=== PATIENT | male | born 1955 | race Two or more races ===

== ENCOUNTER → 2020-08-02 | Outpatient (CLI) | payer MEDICARE ==
[2015-04-20 10:07] VITALS: BP 149/80
[~2020-08-02] MED LIST: BUDE10.22 IH; BUME1TAB3 PO; POTA10TA12 PO; PREG100C PO
--- NOTE | 2020-08-03 08:16 | RAD ---
US THYROID: 08/02/2020 10:59 AM Indication: 64 years old Male. Thyroiditis. Comparison: None. TECHNIQUE: Sonographic evaluation of the thyroid gland was performed utilizing grayscale and color Do ppler imaging. FINDINGS: Examination limited by motion and body habitus. Right lobe: Normal in morphology and echotexture without significant hyperemia. Size: 3.2 x 1.6 x 1.6 cm Nodules: No suspicious thyroid nodules are identified. Left lobe: Normal in morphology and echotexture without significant hyperemia. Size: 3.6 x 1.7 x 1.6 cm Nodules: No suspicious thyroid nodules are identified. Isthmus: Measure 0.9 cm without suspicious thyroid nodule. IMPRESSION: 1. No suspicious thyroid nodules are identified. No significant hyperemia is present. Electronically signed by: Ni Dietrich MD (08/03/2020 8:14 AM) [id number]
== END ==
LOC: US 10:49
PROVIDERS: ATTEND Family Medicine
DX: E06.9 Thyroiditis, unspecified (principal)
CPT/HCPCS: 76536

== ENCOUNTER 2021-06-02 12:43 | Emergency (ER) | payer MEDICARE ==
[~2021-06-02] VITALS: Ht 175.3 cm; Wt 139.7 kg
[2021-06-02 12:43] VITALS: BP 147/103
[~2021-06-02 12:43] MED LIST changes: -CLIN-95 PO
--- NOTE | 2021-06-02 13:17 | PHYS DOC ---
Past History Past Medical History: CHF, COPD, Vascular Disease (HALEY ONEAL PAYROLL MASTER) Past Surgical History: No Surgical History (HALEY ONEAL PAYROLL MASTER) Alcohol Use: None Drug Use: None (HALEY ONEAL APRN) Adult General Chief Complaint Chief Complaint: MULTIPLE COMPLAINTS [facility] HPI Patient is a 65-year-old male patient with history of CHF, COPD who presents today complaining of dental infection and left lower lip numbness. Patient states he developed left lower gum dental infection 4 days ago, he states due to the pain he started using Orajel. He states he applied "quiet abit" of the oral Orajel on the left lower gum which has made his left lower lip numb as well as part of the gum. Numbness has been present for 4 days. Patient states he went to urgent care for antibiotics and was sent to the Ed with concerns he could have a stroke. (HALEY ONEAL PAYROLL MASTER) Review of Systems Review of Systems Constitutional: Denies fever or chills [] Eyes: Denies change in visual acuity, redness, or eye pain [] HENT: Reports dental infection in the left lower lip numbness, denies nasal congestion or sore throat [] Respiratory: Denies cough or shortness of breath [] Cardiovascular: No additional information not addressed in HPI [] GI: Denies abdominal pain, nausea, vomiting, bloody stools or diarrhea [] : Denies dysuria or hematuria [] Musculoskeletal: Denies back pain or joint pain [] Integument: Denies rash or skin lesions [] Neurologic: Denies headache, focal weakness or sensory changes [] All other systems were reviewed and found to be within normal limits, except as documented in this note. (HALEY ONEAL PAYROLL MASTER) Allergies Allergies Allergies Coded Allergies Type Severity Reaction Last Updated Verified Penicillins Allergy Intermediate rash 04/19/15 No (HALEY ONEAL APRN) Physical Exam Physical Exam Constitutional: Well developed, well nourished, no acute distress, non-toxic appearance. [] HENT: Normocephalic, atraumatic, bilateral external ears normal, oropharynx moist, no oral exudates, nose normal. [] Dental exam-missing molars on the left lower abdomen, right lower gum as well. The few teeth left decayed and appear infected. No gum erythema. Left lower gum and lip are numb. Eyes: PERRLA, EOMI, conjunctiva normal, no discharge. [] Neck: Normal range of motion, no tenderness, supple, no stridor. [] Cardiovascular:Heart rate regular rhythm, no murmur [] Lungs & Thorax: Bilateral breath sounds clear to auscultation [] Abdomen: Bowel sounds normal, soft, no tenderness, no masses, no pulsatile masses. [] Skin: Warm, dry, no erythema, no rash. [] Back: No tenderness, no CVA tenderness. [] Extremities: No tenderness, no cyanosis, no clubbing, ROM intact, no edema. [] Neurologic: Alert and oriented X 3, normal motor function, normal sensory function, no focal deficits noted. Cranial nerves II through XII intact Psychologic: Affect normal, judgement normal, mood normal. [] (JTUNGAHALEY M PAYROLL MASTER) EKG EKG [] (RACHIDAHALEY PAYROLL MASTER) Radiology/Procedures Radiology/Procedures []PROCEDURE: CT HEAD WO CONTRAST CT HEAD INDICATION: Reason: Lower lip numbness after using oralgel / Spl. Instructions: / History: COMPARISON: None Available. Exposure: One or more of the following individualized dose reduction techniques were utilized for this examination: 1. Automated exposure control 2. Adjustment of the mA and/or kV according to patient size 3. Use of iterative reconstruction technique TECHNIQUE: 5 mm contiguous axial images were obtained from the skull base to the vertex in both bone and soft tissue algorithm. FINDINGS: No abnormal attenuation within the brain parenchyma. No evidence of acute intracranial hemorrhage. No extra-axial fluid collections. No mass effect or midline shift. Ventricular size is appropriate. Basal cisterns are patent. No fractures identified.Matamoros-white differentiation is preserved.Globes and orbits are within normal limits. Paranasal sinuses and mastoid air cells are clear. IMPRESSION: No acute intracranial findings. Electronically signed by: Joey Willis MD (06/02/2021 1:28 PM) [id number] DICTATED AND SIGNED BY: JOEY WILLIS MD DATE: 06/02/21 1322 CC: ANGEL MCCONNELL MD; HALEY ONEAL PAYROLL MASTER ~MTH0 0 (JTUNGAHALEY M PAYROLL MASTER) Heart Score C/O Chest Pain: N/A Risk Factors: Risk Factors: DM, Current or recent (<one month) smoker, HTN, HLP, family history of CAD, obesity. Risk Scores: Risk Factors: DM, Current or recent (<one month) smoker, HTN, HLP, family history of CAD, obesity. (HALEY ONEAL APRN) Course & Med Decision Making Course & Med Decision Making Pertinent Labs and Imaging studies reviewed. (See chart for details) This is a 65-year-old male patient presenting to the ED today complaining of dental infection and left lower lip numbness that began 4 days ago after using Orajel. Patient was seen at urgent care was sent to the ED for stroke rule out. His NIHSS scale is 0. CT of the head is negative. Numbness of the lip is from the original. Discharged on clindamycin and instructed to follow-up with a dentist as soon as he can (HALEY ONEAL APRN) Course & Med Decision Making I was the Attending physician on the above date of service of this patient. This patient was evaluated, examined, treated, and dispositioned from the emergency department by the mid-level practitioner. Although I was working at the time , no assistance was requested. Electronically signed, Ismael Watts DO (ISMAEL WATTS DO) Conner Disclaimer Dragon Disclaimer This electronic medical record was generated, in whole or in part, using a voice recognition dictation system. (HALEY ONEAL APRN) NIH Stroke Scale: NIH Stroke Scale Response (Comments) Value Level of Consciousness: 0 Alert/Responsive 0 LOC Questions: 0 Answers both correctly 0 LOC Commands: 0 Performs both tasks 0 Best Gaze: 0 Normal 0 Visual: 0 No visual loss 0 Facial Palsy: 0 Normal, symmetrical 0 Motor - Left Arm 0 No drift 0 Motor - Right Arm 0 No drift 0 Motor - Left Leg 0 No drift 0 Motor: Right Leg 0 No drift 0 Limb Ataxia: 0 Absent 0 Sensory: 0 No loss 0 Best Language: 0 Normal 0 Dysathria: 0 Normal 0 Extinction and Inattention: 0 Normal 0 Total 0 Departure Departure: Impression: Primary Impression: Infected dental caries Disposition: HOME / SELF CARE / HOMELESS Condition: STABLE Referrals: ANGEL MCCONNELL MD (PCP) Follow-up with your dentist and primary care doctor in 1 to 2 weeks Patient Instructions: Dental Caries-Brief, Dental Pain, [id number] Additional Instructions: Your CT of the head is negative for any acute findings. The lip numbness is likely from Orajel. Please take the prescribed antibiotics as ordered until completed. Follow-up with your dentist and primary care doctor next week Scripts Clindamycin Hcl (CLINDAMYCIN HCL) 300 Mg Capsule 1 CAP PO TID, #21 CAP Prov: HALEY ONEAL PAYROLL MASTER 06/02/21 Clindamycin Hcl (CLINDAMYCIN HCL) 300 Mg Capsule 1 CAP PO TID, #21 CAP Prov: HALEY ONEAL APRN 06/02/21 HALEY ONEAL APRN Jun 02, 2021 13:17 ISMAEL WATTS DO Jun 03, 2021 06:54
--- NOTE | 2021-06-02 13:30 | RAD ---
CT HEAD INDICATION: Reason: Lower lip numbness after using oralgel / Spl. Instructions: / History: COMPARISON: None Available. Exposure: One or more of the following individualized dose reduction techniques were utilized for thi s examination: 1. Automated exposure control 2. Adjustment of the mA and/or kV according to patient size 3. Use of iterative reconstruction technique TECHNIQUE: 5 mm contiguous axial images were obtained from the skull base to the vertex in both bone and soft tissue algorithm. FINDINGS: No abnormal attenuation within the brain parenchyma. No evidence of acute intracranial hemorrhage. No extra-axial fluid collections. No mass effect or midline shift. Ventricular size is appropriate. Basal cisterns are patent. No fractures identified.Matamoros-white differentiation is preserved.Globes and orbits are within normal l imits. Paranasal sinuses and mastoid air cells are clear. IMPRESSION: No acute intracranial findings. Electronically signed by: Joey Willis MD (06/02/2021 1:28 PM) [id number]
[2021-06-02] MEDS ORDERED: CLIN-95 PO ×2 (13:35→13:39)
== END 2021-06-02 13:43 | disposition home or self-care (01) ==
LOC: ER 12:43
DX: K02.9 Dental caries, unspecified (principal); J44.9 Chronic obstructive pulmonary disease, unspecified; I50.9 Heart failure, unspecified; Z88.0 Allergy status to penicillin
CPT/HCPCS: 70450; 99284

== ENCOUNTER → 2021-06-02 | Outpatient (CLI) | payer MEDICARE ==
[~2021-06-02] MED LIST changes: +CLIN-95 PO
[2021-06-02 12:43] VITALS: BP 147/103
--- NOTE | 2021-06-02 14:09 | RAD ---
Examination: 3 views of the left ankle HISTORY: History of left lateral ankle pain COMPARISON: None available. Findings/ impression: The alignment of the ankle mortise grossly appears unremarkable. Mild soft tissue swelling identified lateral to lateral malleolus. Small inferior calcaneal enthesophyte identified. Electronically signed by: Joey Willis MD (06/02/2021 2:07 PM) [id number]
== END ==
LOC: RAD 13:46
PROVIDERS: ATTEND Family Medicine
DX: M79.89 Other specified soft tissue disorders (principal); M25.572 Pain in left ankle and joints of left foot
CPT/HCPCS: 73610

== ENCOUNTER 2021-08-03 20:33 | Emergency (ER) | payer MEDICARE ==
[~2021-08-03] VITALS: Ht 175.3 cm; Wt 139.7 kg
[~2021-08-03 20:33] MED LIST changes: +CLIN-95 PO
[2021-08-03] MEDS ORDERED: DOXYCYCLINE HYCLATE 100 MG TABLET PO ONE (21:00)
[2021-08-03] MEDS ORDERED: DIPHTH,PERTUSS(ACELL),TET TOX 0.5 ML DISP.SYRIN. VAX IM ONE (21:00)
[2021-08-03] MEDS ORDERED: cefTRIAXone IM 1 GM VIAL IM ONE (21:00)
[2021-08-03] MEDS ORDERED: DOXY100T PO (21:22)
--- NOTE | 2021-08-03 21:22 | PHYS DOC ---
Past History Past Medical History: CHF, COPD, Vascular Disease Additional Past Medical Histor: neuropathy (MALDONADO KIRBY APRN) Past Surgical History: No Surgical History (MALDONADO KIRBY APRN) Alcohol Use: None Drug Use: None (MALDONADO KIRBY APRN) General Adult EDM: Chief Complaint: TOE PROBLEM HPI: HPI: Patient is a 65-year-old male who presents to the emergency department today for left great toe injury and pain. Patient reports that his horse stepped on his toe around 6:00 this evening. He rates his pain 5 out of 10. No treatment prior to arrival. He states that he is able to bear weight and ambulate. He denies any decreased range of motion or decrease sensation in his extremity. He is unsure of his last tetanus shot. (MALDONADO KIRBY APRN) Review of Systems: Review of Systems: Constitutional: negative unless reported in HPI Eyes: negative unless reported in HPI HENT: negative unless reported in HPI Respiratory: negative unless reported in HPI Cardiovascular: negative unless reported in HPI GI: negative unless reported in HPI : negative unless reported in HPI Musculoskeletal: negative unless reported in HPI Integument: negative unless reported in HPI Neurologic: negative unless reported in HPI Endocrine: negative unless reported in HPI Lymphatic: negative unless reported in HPI Psychiatric: negative unless reported in HPI (MALDONADO KIRBY APRN) Current Medications: Current Meds: Current Medications Medications (Trade) Dose Ordered Sig/Terrence Start Time Stop Time Status Last Admin Dose Admin Ceftriaxone Sodium (Rocephin Im) 1 gm 1X ONCE 08/03/21 21:00 08/03/21 21:06 DC Diphtheria/ Tetanus/Acell Pertussis (Boostrix) 0.5 ml ONCE ONCE 08/03/21 21:00 08/03/21 21:06 DC Doxycycline Hyclate (Vibra-Tab) 100 mg 1X ONCE 08/03/21 21:00 08/03/21 21:06 DC (MALDONADO KIRBY APRN) Allergies: Allergies: Allergies Coded Allergies Type Severity Reaction Last Updated Verified Penicillins Allergy Intermediate rash 04/19/15 No (MALDONADO KIRBY APRN) Physical Exam: PE: Constitutional: Well developed, well nourished, no acute distress, non-toxic appearance. [] HENT: Normocephalic, atraumatic, bilateral external ears normal, oropharynx moist, no oral exudates, nose normal. [] Eyes: PERRL, EOMI, conjunctiva normal, no discharge. [] Neck: Normal range of motion, no stridor Cardiovascular: Normal peripheral perfusion Lungs & Thorax: Normal work of breathing, no tachypnea Abdomen: Obese and soft Skin: Warm, dry, no erythema, no rash. [] Back: Normal range of motion Extremities: No tenderness, no cyanosis, no clubbing, ROM intact, no edema. [] Left great toe: Swelling noted, nail is loosely hanging, range of motion intact, neuro intact Neurologic: Alert and oriented X 3, normal motor function, normal sensory function, no focal deficits noted. [] Psychologic: Affect normal, judgement normal, mood normal. [] (MALDONADO KIRBY APRN) Current Patient Data: Vital Signs: Vital Signs Date Time Temp Pulse Resp B/P (MAP) Pulse Ox O2 Delivery O2 Flow Rate FiO2 08/03/21 20:48 98.2 80 16 152/80 (104) 95 (MALDONADO KIRBY APRN) EKG: EKG: [] (AMLDONADO KIRBY APRN) Radiology/Procedures: Radiology/Procedures: [] (MALDONADO KIRBY APRN) Heart Score: C/O Chest Pain: N/A Risk Factors: Risk Factors: DM, Current or recent (<one month) smoker, HTN, HLP, family history of CAD, obesity. Risk Scores: Score 0 - 3: 2.5% MACE over next 6 weeks - Discharge Home Score 4 - 6: 20.3% MACE over next 6 weeks - Admit for Clinical Observation Score 7 - 10: 72.7% MACE over next 6 weeks - Early Invasive Strategies (MALDONADO KIRBY APRN) Course & Med Decision Making: Course & Med Decision Making Pertinent Labs and Imaging studies reviewed. (See chart for details) [] Patient presents to the emergency department for left great toe injury after horse stepped on it this evening. The nail was loosely hanging and this was removed, patient tolerated procedure. An x-ray was performed to rule out any fracture and this showed fracture of great toe as read by this GRAPHITE GRINDER and supervising physician. Patients toe was fabi taped. Patient's tetanus was updated. Wound was cleansed in the emergency department and a dressing was placed. Patient given antibiotics in the emergency department and discharged home with antibiotics, he states that he was told he was allergic to pcn but does not know if he really is. Patient educated on wound care and follow-up. I discussed with patient all findings and diagnostic testing as well as the need to follow-up with PCP for further evaluation and treatment or return to the ER if any new or worsening symptoms. Strict return precautions were also discussed at length. Patient voiced understanding and agreement with the plan. Patient is hemodynamically stable at the time of disposition. (MALDONADO KIRBY APRN) Course & Med Decision Making Did not see or evaluate patient. Did not discuss patient with GRAPHITE GRINDER. Agree with GRAPHITE GRINDER's work-up and disposition per note (MERCEDES SANDOAVL MD) Dragon Disclaimer: Dragon Disclaimer: This electronic medical record was generated, in whole or in part, using a voice recognition dictation system. (MALDONADO KIRBY APRN) Departure Departure: Impression: Primary Impression: Toe fracture Qualified Codes: S92.425B - Nondisplaced fracture of distal phalanx of left great toe, initial encounter for open fracture Disposition: HOME / SELF CARE / HOMELESS Condition: GOOD Referrals: ANGEL PENA MD (PCP) TERESA CHOUDHURY Jr. DO Patient Instructions: Toe Fracture, Wound Care, [id number] Additional Instructions: You were seen in the emergency department for left great toe injury. An x-ray was performed that showed fracture. Your toe was fabi taped to the toe beside it for stabilization, continue to do this at home. Please keep your toe clean and dry. Please change the dressings 3 times a day. Please contact Dr. Pena on Friday to set up a follow-up appointment for wound recheck. Monitor for any signs of infection which include redness, warmth, swelling or drainage. You are being discharged home with an antibiotic. Make sure that you start and finish the antibiotic completely. You can take ibuprofen for mild pain. For severe pain you are being discharged home with a pain medication. This medication is hydrocodone and Tylenol in combination tablet. This medication may cause drowsiness so do not take need to be alert, driving a vehicle or with alcohol. Return to the emergency department if you notice any signs of infection, worsening pain, increased swelling, decreased range of motion or decrease sensation in your toe. You can follow-up with an orthopedic doctor regarding your toe fracture. Please call [facility] orthopedic group at [phone] to set up a follow-up appointment as soon as possible. Scripts Hydrocodone Bit/Acetaminophen (HYDROCODONE-APAP 5-325 ) 1 Each Tablet 1 TAB PO PRN Q6HRS PRN for PAIN for 2 Days, #8 TAB 0 Refills Prov: MALDONADO KIRBY EYE DROPPER ASSEMBLER 08/03/21 Levofloxacin (LEVOFLOXACIN) 500 Mg Tablet 1 TAB PO DAILY for infection for 7 Days, #7 TAB 0 Refills Prov: MALDONADO KIRBY EYE DROPPER ASSEMBLER 08/03/21 Doxycycline Hyclate (DOXYCYCLINE HYCLATE) 100 Mg Tablet 1 TAB PO BID for infection for 10 Days, #20 TAB 0 Refills Prov: MALDONADO KIRBY EYE DROPPER ASSEMBLER 08/03/21 MALDONADO KIRBY EYE DROPPER ASSEMBLER Aug 03, 2021 21:22 MERCEDES SANDOVAL MD Aug 03, 2021 22:02
[2021-08-03] MEDS ORDERED: LEVO500T9 PO (21:44)
[2021-08-03] MEDS ORDERED: levoFLOXacin 500 MG TABLET PO ONE (21:45)
[2021-08-03] MEDS ORDERED: HYDR-2155 PO (21:47)
--- NOTE | 2021-08-03 21:57 | RAD ---
Left great toe 3 views. HISTORY: Toe injury, horse stepped on foot 3 views were taken of the left great toe. There is not evidence of an acute fracture or osseous abnor mality. IMPRESSION: 1. No acute fracture noted in the left great toe. Electronically signed by: Braydon Garcia MD (08/03/2021 9:55 PM) [facility]
== END 2021-08-03 22:03 | disposition home or self-care (01) ==
LOC: ER 20:33
DX: S92.425B Nondisplaced fracture of distal phalanx of left great toe, initial encounter for open fracture (principal); I50.9 Heart failure, unspecified; J44.9 Chronic obstructive pulmonary disease, unspecified; Z88.0 Allergy status to penicillin; W22.8XXA Striking against or struck by other objects, initial encounter; Y93.89 Activity, other specified; Y92.89 Other specified places as the place of occurrence of the external cause; Y99.8 Other external cause status
CPT/HCPCS: 73660; 90471; 90715; 96372; 99284; J0696; 11730